=== PATIENT | female | born 2000 | race Caucasian/White ===

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

== ENCOUNTER 2020-03-26 01:25 | Emergency (ER) | payer MEDICAID ==
--- NOTE | 2020-03-26 01:28 | ED Physician Documentation ---
History of Present Illness - Stated complaint Stated Complaint: JACOB MELENDEZ - History obtained from History obtained from: Patient - Additonal information Additional information: Patient is a 19-year-old female who presents with a chief complaint of sore throat. She reports that she has been treated currently for some sort of thyroid condition she is unsure what she is taking. She has a follow-up appointment on Saturday. She denies fevers, headache or neck pain denies any swelling of the face neck or throat.Denies headache, neck pain or rashes. Reports she is up-to-date on all of her immunizations. Review of Systems Constitutional: reports: Reviewed and negative Eyes: reports: Reviewed and negative Ears: reports: Reviewed and negative Nose: reports: Reviewed and negative Throat: reports: Sore throat Cardiac: reports: Reviewed and negative Respiratory: reports: Reviewed and negative GI: reports: Reviewed and negative : reports: Reviewed and negative Skin: reports: Reviewed and negative Musculoskeletal: reports: Reviewed and negative Neurologic: reports: Reviewed and negative Psychiatric: reports: Reviewed and negative Endocrine: reports: Reviewed and negative Immunocompromised: reports: Reviewed and negative PD PAST MEDICAL HISTORY - Past Medical History Respiratory: Asthma GI: Ulcers - Past Surgical History Past Surgical History: Yes HEENT: Tonsil/Adenoidectomy - Present Medications Home Medications: Ambulatory Orders Medication Instructions Recorded Confirmed Fluoxetine HCl 20 mg PO DAILY 03/26/20 03/26/20 Thyroid Meds 03/26/20 - Allergies Allergies/Adverse Reactions: Allergies Allergy/AdvReac Type Severity Reaction Status Date / Time No Known Drug Allergies Allergy Verified 03/26/20 01:30 - Social History Does the pt smoke?: Yes Smoking Status: Current every day smoker Does the pt drink ETOH?: No Does the pt have substance abuse?: No - Immunizations Immunizations are current?: Yes - POLST Patient has POLST: No PD ED PE NORMAL - Vitals Vital signs reviewed: Yes - General General: Alert and oriented X 3, No acute distress, Well developed/nourished - HEENT HEENT: PERRL, Moist mucous membranes, Other (Oropharynx is erythematous but there is no exudates, uvula is midline there is no anterior posterior cervical lymphadenopathy there is no obvious thyromegaly there is no JVD and no bruits the Neck is supple.) - Neck Neck: Supple, no meningeal sign - Cardiac Cardiac: RRR, No murmur - Respiratory Respiratory: Clear bilaterally - Abdomen Abdomen: Normal bowel sounds, Soft, Non tender, Non distended, No organomegaly - Derm Derm: Normal color, Warm and dry, No rash - Extremities Extremities: No deformity, No tenderness to palpate, Normal ROM s pain, No edema, No calf tenderness / cord - Neuro Neuro: Alert and oriented X 3, trimmer buffing wheel 2-12 intact, No motor deficit, No sensory deficit, Normal speech - Psych Psych: Normal mood, Normal affect Results - Vitals Vitals: Vital Signs - 24 hr 03/26/20 01:28 Temperature 36.7 C Heart Rate 95 Respiratory 16 Rate Blood Pressure 128/66 O2 Saturation 100 Oxygen O2 Source Room air - Labs Labs: Laboratory Tests 03/26/20 01:02 Group A Strep Rapid Negative PD MEDICAL DECISION MAKING - ED course Complexity details: reviewed results, re-evaluated patient, considered differential, d/w patient ED course: Patient has no signs or symptoms or any exam findings concerning for respiratory distress or Suresh's angina or peritonsillar abscess or prevertebral abscess the neck is supple there is no obvious thyromegaly. Her rapid strep screen is negative she is able to tolerate a p.o. challenge here she has normal voice.Patient Indicates she has scheduled outpatient blood work for this Saturday.Patient has follow-up appointment on Saturday. She should return to the emergency department with any concerns. Departure - Departure Disposition: Home, Self Care Clinical Impression: Thyroiditis Pharyngitis Qualifiers: Pharyngitis/tonsillitis etiology: unspecified etiology Qualified Code(s): J02.9 - Acute pharyngitis, unspecified Condition: Stable Instructions: Thyroid Probs Evaluate Follow-Up: Alanna Salgado MD [Primary Care Provider] - Comments: follow up with your primary care provider on Saturday.
[2020-03-26 01:30] VITALS: BP 128/66
[2020-03-26 02:09] LABS: RAPID STREP SCREEN Negative (Negative)
== END 2020-03-26 02:19 | disposition home or self-care (01) ==
LOC: ED 01:25
DX: J02.9 Acute pharyngitis, unspecified (principal); E06.9 Thyroiditis, unspecified; F17.200 Nicotine dependence, unspecified, uncomplicated
CPT/HCPCS: 87070; 87430; 99282; 99283

== ENCOUNTER 2020-06-25 22:13 | Emergency (ER) | payer MEDICAID ==
[2020-06-25 22:30] VITALS: BP 111/87
== END 2020-06-25 23:01 | disposition left against medical advice (07) ==
LOC: ED 22:13
DX: Z53.21 Procedure and treatment not carried out due to patient leaving prior to being seen by health care provider (principal)
CPT/HCPCS: 93005

== ENCOUNTER 2020-10-02 16:22 | Outpatient (CLI) | payer MEDICAID ==
[2020-10-02 17:10] LABS: HCG,QUALITATIVE BLOOD NEGATIVE
== END 2020-10-02 16:23 | disposition home or self-care (01) ==
LOC: LAB 16:22
PROVIDERS: ATTEND Specialist
DX: Z01.812 Encounter for preprocedural laboratory examination (principal)
CPT/HCPCS: 36415; 84703

== ENCOUNTER 2020-11-12 00:21 | Emergency (ER) | payer MEDICAID ==
--- NOTE | 2020-11-12 00:45 | ED Physician Documentation ---
PD HPI DYSPNEA - Stated complaint Stated Complaint: SOA - Chief complaint Chief Complaint: Resp - History obtained from History obtained from: Family - History of Present Illness Timing - onset: How many minutes ago (30) Timing - onset during: Rest Timing - details: Abrupt onset, Still present (nearly resolved) Pain level now: 0 Associated symptoms: No: Fever, Cough, Hemoptysis, Wheezing, Chest pain / discomfort, Palpitations, Bilateral edema, Unilateral edema, Anxiety Recently seen: Not recently seen - Additional information Additional information: patient presents complaining of dyspnea which started 30 minutes prior to arrival while at home at rest. She said she has not had similar symptoms before. The dyspnea has nearly resolved by the time of this evaluation. She says she is approximately 6 to 7 weeks , has not had outpatient evaluation for this yet but she said she has had several positive home tests. Review of Systems Constitutional: reports: Reviewed and negative Cardiac: reports: Reviewed and negative Respiratory: reports: Dyspnea. denies: Cough, Hemoptysis, Wheezing GI: reports: Reviewed and negative : reports: Now EGA (6-7 weeks) PD PAST MEDICAL HISTORY - Past Medical History Past Medical History: Yes Cardiovascular: Atrial fibrillation Respiratory: Asthma Endocrine/Autoimmune: HyPERthyroidism GI: Ulcers - Past Surgical History Past Surgical History: Yes HEENT: Tonsil/Adenoidectomy - Present Medications Home Medications: Ambulatory Orders Medication Instructions Recorded Confirmed Fluoxetine HCl 20 mg PO DAILY 03/26/20 11/12/20 Thyroid Meds 03/26/20 atenoloL [Tenormin] 25 mg PO BID 11/12/20 11/12/20 - Allergies Allergies/Adverse Reactions: Allergies Allergy/AdvReac Type Severity Reaction Status Date / Time No Known Drug Allergies Allergy Verified 11/12/20 00:32 - Social History Does the pt smoke?: Yes Smoking Status: Current every day smoker Does the pt drink ETOH?: No Does the pt have substance abuse?: No - Immunizations Immunizations are current?: Yes - POLST Patient has POLST: No PD ED PE NORMAL - Vitals Vital signs reviewed: Yes - General General: Alert and oriented X 3, No acute distress, Well developed/nourished - Neck Neck: Supple, no meningeal sign - Respiratory Respiratory: No respiratory distress, Clear bilaterally - Abdomen Abdomen: Soft, Non tender PD ED PE EXPANDED - Cardiac Cardiac: Tachy, Regular Rhythm, Murmur Present (2/6 COLBY left 2nd ICS) Results - Vitals Vitals: Vital Signs - 24 hr 11/12/20 11/12/20 11/12/20 00:29 00:32 01:50 Temperature 36.7 C 36.7 C 36.7 C Heart Rate 122 H 113 H 116 H Respiratory 16 30 H 21 Rate Blood Pressure 151/68 H 149/68 H 132/62 H O2 Saturation 97 100 100 11/12/20 11/12/20 02:34 02:53 Temperature 36.7 C Heart Rate 125 H 125 H Respiratory 26 H 26 H Rate Blood Pressure 151/65 H 151/65 H O2 Saturation 99 99 Oxygen O2 Source Room air - EKG (time done) No standard instances Rate: Rate (enter#) (110), Tachy Rhythm: Sinus tachycardia [place]: Normal Intervals: Normal DE, Other (rSR) QRS: Normal Ischemia: Normal ST segments Compare to prior EKG: Unchanged from prior EKG - Labs Labs: Laboratory Tests 11/12/20 11/12/20 11/12/20 00:49 00:49 00:49 WBC 7.5 RBC 4.39 Hgb 11.3 L Hct 35.3 L MCV 80.4 L MCH 25.7 L MCHC 32.0 RDW 12.2 Plt Count 186 MPV 10.2 Neut # (Auto) 4.0 Lymph # (Auto) 2.6 Starke # (Auto) 0.5 Eos # (Auto) 0.3 Baso # (Auto) 0.0 Absolute Nucleated RBC 0.00 Nucleated RBC % 0.0 Sodium 136 Potassium 3.7 Chloride 103 Carbon Dioxide 25 Anion Gap 8.0 BUN 16 Creatinine 0.3 L Estimated GFR (MDRD) 284 Glucose 123 H Calcium 9.0 Total Bilirubin 0.6 AST 23 ALT 24 Alkaline Phosphatase 135 H Total Protein 6.3 L Albumin 3.4 Globulin 2.9 Albumin/Globulin Ratio 1.2 Lipase 46 TSH < 0.08 L Free T4 HCG, Quant 11/12/20 11/12/20 00:49 00:49 WBC RBC Hgb Hct MCV MCH MCHC RDW Plt Count MPV Neut # (Auto) Lymph # (Auto) Starke # (Auto) Eos # (Auto) Baso # (Auto) Absolute Nucleated RBC Nucleated RBC % Sodium Potassium Chloride Carbon Dioxide Anion Gap BUN Creatinine Estimated GFR (MDRD) Glucose Calcium Total Bilirubin AST ALT Alkaline Phosphatase Total Protein Albumin Globulin Albumin/Globulin Ratio Lipase TSH Free T4 5.06 H HCG, Quant 1.46 PD MEDICAL DECISION MAKING - ED course Complexity details: reviewed old records, reviewed results, re-evaluated patient, considered differential, d/w patient ED course: patient presents with dyspnea that started 30 minutes ago while at home at rest and is nearly resolved by the time of this evaluation. On reevaluation after tests are resulted, patient says she is no longer having any symptoms and is requesting discharge home. I reviewed the results of her test with her. Her hCG quant is negative at this time and I explained to her that this would be inconsistent with currently being . This is relevant because she is taking atenolol which would be a sub optimal medication in (category D). as her blood test is inconsistent with being at this time, I r ecommended that she take a dose of atenolol as soon as she gets home, and then resume taking the atenolol as prescribed. Her TSH is undetected low, and her free T4 is elevated, consistent with hypothyroidism, and she already does carry this diagnosis. Records from [facility] ED visit from September were faxed and I reviewed these records, they indicate a very similar visit at that time with similar findings. The ED record reflects that the ED physician spoke with patients senior quantity surveyor, and the recommendation was to emphasize strict adherence to her regimen of atenolol and methimazole. sukhwinder visit represents patients 12th emergency department visit over past 12 months to three different emergency departments. She is discharged although she is still tachycardic at the time of discharge, but she insist this is normal for her, she is an NAD, and strongly wishes to be discharged at this time. She says she will call her senior quantity surveyor on Saturday to discuss these results and obtain further recommendation regarding medication Departure - Departure Disposition: Home, Self Care Clinical Impression: Hyperthyroidism Condition: Good Instructions: ED Hyperthyroidism Follow-Up: Alanna Salgado MD [Primary Care Provider] - Comments: As we discussed, your test susan results as negative for . I recommend resuming the methimazole as prescribed, and taking a dose of your atenolol as soon as you get home, then resuming the prescribed dose. Contact your senior quantity surveyor Saturday to discuss follow up recommendations. Susan's thyroid tests were significantly abnormal and suggestive of uncontrolled hyperthyroidism. Discharge Date/Time: 11/12/20 02:53
[2020-11-12] MEDS ORDERED: SODIUM CHLORIDE 0.9% 1,000 ML IV STA (01:14)
[2020-11-12 01:19] LABS: BASOPHILS % (AUTO) 0.4 %; EOSINOPHILS # (AUTO) 0.3 10^3/uL (0.0-0.7); EOSINOPHILS % (AUTO) 3.5 %; HCT - HEMATOCRIT 35.3 % (37.0-47.0); HGB - HEMOGLOBIN 11.3 g/dL (12.0-16.0); LYMPHOCYTES # (AUTO) 2.6 10^3/uL (1.5-3.5); LYMPHOCYTES % (AUTO) 35.2 %; MEAN CORPUSCULAR HEMOGLOBIN 25.7 pg (27.0-31.0); MEAN CORPUSCULAR VOLUME 80.4 fL (81.0-99.0); MEAN PLATELET VOLUME 10.2 fL (7.9-10.8); MONOCYTES # (AUTO) 0.5 10^3/uL (0.0-1.0); MONOCYTES % (AUTO) 7.2 %; NEUTROPHILS % (AUTO) 53.4 %; PLT - PLATELET COUNT 186 10^3/uL (130-450); RED BLOOD COUNT 4.39 10^6/uL (4.20-5.40); RED CELL DISTRIBUTION WIDTH 12.2 % (12.0-15.0); WHITE BLOOD COUNT 7.5 x10^3/uL (4.8-10.8)
[2020-11-12 01:29] LABS: ALBUMIN 3.4 g/dL (3.2-5.5); ALBUMIN/GLOBULIN RATIO 1.2 (1.0-2.2); BILIRUBIN,TOTAL 0.6 mg/dL (0.2-1.0); CREATININE 0.3 mg/dL (0.4-1.0); POTASSIUM 3.7 mmol/L (3.5-5.0); TOTAL PROTEIN 6.3 g/dL (6.7-8.2)
[2020-11-12 02:34] VITALS: BP 151/65
--- OUTSIDE RECORDS SUMMARY | 2020-11-16 02:23 | EXTERNAL MEDICAL SUMMARY RPT | Continuity of Care Document ---
:2000 Demographics Phone Unavailable Preferred Language Russian Marital Status Unknown Rastafarian Affiliation Unknown Race Unknown Ethnic Group Unknown Author Organization [place] Address [address] [id number] Phone Care Team Providers Name Role Phone Damian Unavailable Unavailable Problems date description facility 20201007 Encounter for other preprocedural exami [facility] 20201115 Encounter for supervision of other norm al , [facility] first t Medications date description facility 20200915 Atenolol 25 MG Oral Tablet [facility] ital Procedures date description facility 20200915 General Physician [facility] Vital Signs date measurement value source 20200915 BMI 18.7 kg/m2 20200915 BP_diastolic 80 mm[Hg] 20200915 BP_systolic 127 mm[Hg] 20200915 heart_rate 108 /min 20200915 height_metric 167.64 cm 20200915 height_standard 66 in 20200915 respiration_rate 16 /min 20200915 temperature_metric 37.11 C 20200915 temperature_standard 98.8 F 20200915 weight_metric 52.61 kg 20200915 weight_standard 115.99 lb Social History date description facility [id number]
== END 2020-11-12 02:53 | disposition home or self-care (01) ==
LOC: ED 00:21
DX: E05.90 Thyrotoxicosis, unspecified without thyrotoxic crisis or storm (principal); R06.02 Shortness of breath; R00.0 Tachycardia, unspecified; Z32.02 Encounter for pregnancy test, result negative; F17.200 Nicotine dependence, unspecified, uncomplicated
CPT/HCPCS: 36415; 80053; 83690; 84439; 84443; 84702; 85025; 93005; 96360; 99283

== ENCOUNTER 2020-11-23 22:21 | Emergency (ER) | payer MEDICAID ==
--- OUTSIDE RECORDS SUMMARY | 2020-11-23 22:25 | EXTERNAL MEDICAL SUMMARY RPT | Continuity of Care Document ---
:2000 Demographics Phone Unavailable Preferred Language Yi Marital Status Unknown Jew Affiliation Unknown Race Unknown Ethnic Group Unknown Author Organization [place] Address [address] [phone] Phone Care Team Providers Name Role Phone Damian Unavailable Unavailable Problems date description facility 20201007 Encounter for other preprocedural exami [facility] 20201115 Encounter for supervision of other norm al , [facility] first t 20201116 Less than 8 weeks gestation of [facility] Medications date description facility 20200915 Atenolol 25 MG Oral Tablet [facility] ital Procedures date description facility 20200915 [facility] date description facility 20201007 [facility] date description facility 20201115 [facility] date description facility 20201116 [facility] date description facility 20201117 [facility] Vital Signs date measurement value source 20200915 BMI 18.7 kg/m2 20200915 BP_diastolic 80 mm[Hg] 20200915 BP_systolic 127 mm[Hg] 20200915 heart_rate 108 /min [id number] height_metric 167.64 cm [id number] height_standard 66 in [id number] respiration_rate 16 /min 20200915 temperature_metric 37.11 C 20200915 temperature_standard 98.8 F 20200915 weight_metric 23.87 kg [id number] weight_metric 52.61 kg 16658202 weight_standard 115.99 lb [id number] weight_standard 52.62 lb Social History date description facility [id number]
--- OUTSIDE RECORDS SUMMARY | 2020-11-23 22:27 | EXTERNAL MEDICAL SUMMARY RPT | Continuity of Care Document ---
:2000 Demographics Phone Unavailable Preferred Language Romansh Marital Status Unknown Yazdanism Affiliation Unknown Race Unknown Ethnic Group Unknown Author Organization [place] Address [address] [phone] Phone Care Team Providers Name Role Phone Damian Unavailable Unavailable Problems date description facility 20201007 Encounter for other preprocedural exami [facility] 20201115 Encounter for supervision of other norm al , [facility] first t 20201116 Less than 8 weeks gestation of [facility] Medications date description facility 20200915 Atenolol 25 MG Oral Tablet [facility] ital Procedures date description facility 20200915 [facility] date description facility 20201007 [facility] date description facility 20201115 [facility] date description facility 20201116 [facility] date description facility 20201117 [facility] Vital Signs date measurement value source 20200915 BMI 18.7 kg/m2 20200915 BP_diastolic 80 mm[Hg] 20200915 BP_systolic 127 mm[Hg] 20200915 heart_rate 108 /min [id number] height_metric 167.64 cm [id number] height_standard 66 in [id number] respiration_rate 16 /min 20200915 temperature_metric 37.11 C 20200915 temperature_standard 98.8 F 20200915 weight_metric 23.87 kg 43395953 weight_metric 52.61 kg 98993430 weight_standard 115.99 lb [id number] weight_standard 52.62 lb Social History date description facility [id number]
[2020-11-23 22:39] VITALS: BP 143/65
== END 2020-11-24 00:04 | disposition left against medical advice (07) ==
LOC: ED 22:21
DX: Z53.21 Procedure and treatment not carried out due to patient leaving prior to being seen by health care provider (principal)

== ENCOUNTER 2021-01-17 23:53 | Emergency (ER) | payer MEDICAID ==
--- OUTSIDE RECORDS SUMMARY | 2021-01-17 23:56 | EXTERNAL MEDICAL SUMMARY RPT | Continuity of Care Document ---
:2000 Demographics Phone Unavailable Preferred Language Faroese Marital Status Unknown Congregational Affiliation Unknown Race Unknown Ethnic Group Unknown Author Organization [place] Address [address] [place] [address] Phone Care Team Providers Name Role Phone Alanna Salgado Unavailable Unavailable Allergies Encounters Medications Problems date description facility 20201116 Less than 8 weeks gestation of [facility] 20201115 Encounter for supervision of other norm al , [facility] first t Procedures date description facility 20201117 [facility] 20201116 [facility] 20201115 [facility] Results
--- OUTSIDE RECORDS SUMMARY | 2021-01-18 00:19 | EXTERNAL MEDICAL SUMMARY RPT | Continuity of Care Document ---
:2000 Demographics Phone Unavailable Preferred Language Malawian Marital Status Unknown Alevism Affiliation Unknown Race Unknown Ethnic Group Unknown Author Organization [place] Address [address] [place] [address] Phone Care Team Providers Name Role Phone Alanna Salgado Unavailable Unavailable Allergies Encounters Medications Problems date description facility 20201116 Less than 8 weeks gestation of [facility] 20201115 Encounter for supervision of other norm al , [facility] first t Procedures date description facility 20201117 [facility] 20201116 [facility] 20201115 [facility] Results
--- NOTE | 2021-01-18 00:49 | ED Physician Documentation ---
PD HPI CHEST PAIN - Stated complaint Stated Complaint: LT SIDED RIB PX - Chief complaint Chief Complaint: General - History obtained from History obtained from: Patient - History of Present Illness Timing - onset: How many weeks ago (1.5 weeks ago) Timing - details: Gradual onset, Waxing and waning Pain level now: 8 Quality: Pain Location: Left chest, Right chest, Other (bilaterally but predominantly left lower anterolateral chest) Improved by: Rest Worsened by: Inspiration (mild pleuritic component), Palpation, Other (coughing) Associated symptoms: Shortness of air Similar symptoms before: Has not had sx before Recently seen: Not recently seen Review of Systems Constitutional: denies: Fever, Chills, Sweats Cardiac: reports: Chest pain / pressure. denies: Palpitations, Pedal edema, Calf pain Respiratory: reports: Dyspnea, Cough (nonproductive). denies: Hemoptysis, Wheezing Skin: denies: Rash PD PAST MEDICAL HISTORY - Past Medical History Past Medical History: Yes Cardiovascular: Atrial fibrillation Respiratory: Asthma Endocrine/Autoimmune: HyPERthyroidism GI: Ulcers - Past Surgical History Past Surgical History: Yes HEENT: Tonsil/Adenoidectomy - Present Medications Home Medications: Ambulatory Orders Medication Instructions Recorded Confirmed Fluoxetine HCl 20 mg PO DAILY 03/26/20 11/12/20 Thyroid Meds 03/26/20 atenoloL [Tenormin] 25 mg PO BID 11/12/20 11/12/20 Azithromycin [Zithromax] 250 mg PO DAILY #4 tablet 01/18/21 - Allergies Allergies/Adverse Reactions: Allergies Allergy/AdvReac Type Severity Reaction Status Date / Time Penicillins Allergy Anaphylaxis Verified 01/17/21 23:57 - Social History Does the pt smoke?: Yes Smoking Status: Current every day smoker Does the pt drink ETOH?: No Does the pt have substance abuse?: No - Immunizations Immunizations are current?: Yes - POLST Patient has POLST: No PD ED PE NORMAL - Vitals Vital signs reviewed: Yes - General General: Alert and oriented X 3, No acute distress, Well developed/nourished - Cardiac Cardiac: RRR, No murmur, No gallop, No rub - Respiratory Respiratory: No respiratory distress, Clear bilaterally - Abdomen Abdomen: Soft, Non tender - Derm Derm: Normal color, Warm and dry, No rash - Extremities Extremities: No edema Results - Vitals Vitals: Vital Signs - 24 hr 01/17/21 01/18/21 01/18/21 23:58 00:02 02:02 Temperature 36.5 C 36.5 C Heart Rate 112 H 112 H 92 Respiratory 16 16 17 Rate Blood Pressure 139/71 H 139/71 H 119/58 L O2 Saturation 98 98 99 01/18/21 04:00 Temperature Heart Rate 98 Respiratory 22 Rate Blood Pressure 111/50 L O2 Saturation 99 Oxygen O2 Source Room air - EKG (time done) No standard instances Rate: Rate (enter#) (95) Rhythm: NSR [place]: Normal Intervals: Normal [place] QRS: Normal Ischemia: Normal ST segments Other comments: Other comments (isolated inverted T in lead III) Compare to prior EKG: Unchanged from prior EKG (11/12/20) - Labs Labs: Laboratory Tests 01/18/21 01/18/21 01/18/21 01:15 02:09 02:09 WBC 6.7 RBC 4.79 Hgb 12.4 Hct 38.5 MCV 80.4 L MCH 25.9 L MCHC 32.2 RDW 12.0 Plt Count 231 MPV 9.4 Neut # (Auto) 3.0 Lymph # (Auto) 2.8 [place] # (Auto) 0.7 Eos # (Auto) 0.2 Baso # (Auto) 0.0 Absolute Nucleated RBC 0.00 Nucleated RBC % 0.0 Sodium 138 Potassium 3.6 Chloride 104 Carbon Dioxide 25 Anion Gap 9.0 BUN 13 Creatinine 0.3 L Estimated GFR (MDRD) 284 Glucose 106 H Calcium 9.3 Urine HCG, Qual NEGATIVE - Rads (name of study) CT chest angio Radiology: Prelim report reviewed, See rad report PD MEDICAL DECISION MAKING - ED course Complexity details: reviewed results, re-evaluated patient, considered differential, d/w patient ED course: tachycardia precludes r/o PE using PERC and thus CT chest angio performed. No PE but a left lingular infiltrate is demonstrated. She is given dose of zithromax and rx for same to complete 5 days course. She also has tachycardia for most of her ED stay, which she has had on previous visits, attributed to her hyperthroidism. She says she is compliant with her medications for this. She says she was told to stop her atenolol; due to her recurrent tachycardia in ED including brief increase to 150s ST when I woke her to review her lab results with her, she is given a dose of atenolol in ED prior to d/c Departure - Departure Disposition: 01 Home, Self Care Clinical Impression: Hyperthyroidism, Pneumonia Condition: Good Instructions: ED Hyperthyroidism, ED Pneumonia Adult Follow-Up: Alanna Salgado MD [Primary Care Provider] - Prescriptions: Azithromycin [Zithromax] 250 mg PO DAILY #4 tablet Discharge Date/Time: 01/18/21 04:26
[2021-01-18] MEDS ORDERED: IOVERSOL 320 100 ML VIAL IVP ONE ×2 (01:23→02:58)
[2021-01-18 01:41] LABS: HCG UR QUAL NEGATIVE
[2021-01-18 02:20] LABS: BASOPHILS % (AUTO) 0.6 %; EOSINOPHILS # (AUTO) 0.2 10^3/uL (0.0-0.7); EOSINOPHILS % (AUTO) 3.1 %; HCT - HEMATOCRIT 38.5 % (37.0-47.0); HGB - HEMOGLOBIN 12.4 g/dL (12.0-16.0); LYMPHOCYTES # (AUTO) 2.8 10^3/uL (1.5-3.5); MEAN CORPUSCULAR HEMOGLOBIN 25.9 pg (27.0-31.0); MEAN CORPUSCULAR HGB CONC 32.2 g/dL (32.0-36.0); MEAN CORPUSCULAR VOLUME 80.4 fL (81.0-99.0); MEAN PLATELET VOLUME 9.4 fL (7.9-10.8); MONOCYTES # (AUTO) 0.7 10^3/uL (0.0-1.0); MONOCYTES % (AUTO) 10.7 %; NEUTROPHILS % (AUTO) 44.5 %; PLT - PLATELET COUNT 231 10^3/uL (130-450); RED BLOOD COUNT 4.79 10^6/uL (4.20-5.40); WHITE BLOOD COUNT 6.7 x10^3/uL (4.8-10.8)
[2021-01-18 02:25] LABS: CALCIUM 9.3 mg/dL (8.5-10.3); CREATININE 0.3 mg/dL (0.4-1.0); POTASSIUM 3.6 mmol/L (3.5-5.0)
[2021-01-18] MEDS ORDERED: atenoloL 25 MG TABLET PO STA (04:05)
[2021-01-18] MEDS ORDERED: AZITHROMYCIN 250 MG TABLET PO STA (04:06)
[2021-01-18 04:08] VITALS: BP 111/50
--- NOTE | 2021-01-18 12:28 | CT Report ---
PROCEDURE: ANGIO CHEST W/WO INDICATIONS: pleuritic left chest pain CONTRAST: IV CONTRAST: Optiray 320 ml: 80 PO CONTRAST: *NO PO CONTRAST TECHNIQUE: After the administration of intravenous contrast, 2 mm thick sections acquired from the pulmonary api raina to the posterior costophrenic angles. 3-dimensional maximum intensity projection (MIP) coronal a nd sagittal reformats were then acquired through the thorax. For radiation dose reduction, the follow ing was used: automated exposure control, adjustment of mA and/or kV according to patient size. COMPARISON: CT chest with contrast, 11/05/2016 FINDINGS: Image quality: Excellent. Pulmonary arteries: Pulmonary arteries are normal in size, and demonstrate no intraluminal filling d efects to suggest central pulmonary embolism. Lungs and pleura: Airspace opacity in the lingula consistent with pneumonia. Subtle groundglass subt le groundglass opacity in the left upper lobe are present. There is a 3 mm nodule in the right middle lobe, which was visualized on 11/05/2016 and appears unchanged in size. No pleural effusions or pneum othorax. Central and peripheral airways are patent. Mediastinum: Heart size is normal, without pericardial effusion. No mediastinal or hilar adenopathy . Thoracic aorta is normal in caliber and enhancement. Esophagus is normal in caliber, without hiat al hernia. Bones and chest wall: No suspicious bony lesions. Mild chronic compression fracture of T6. Ribs and thoracic spine appear intact throughout. No axillary or supraclavicular adenopathy. The thyroid is diffusely enlarged. Abdomen: Visualized upper abdominal solid organs appear normal in the early arterial phase of enhanc ement. IMPRESSION: 1. No findings to suggest pulmonary aneurysm. 2. Lingular and left upper lobe pneumonia. 3. Stable 3 mm nodule in the right middle lobe. 4. Thyromegaly. Please correlate with thyroid function tests. No significant discrepancy with the preliminary interpretation. Fleischner Society criteria for SOLID lung nodule followup. Nodule size (mm) Low-risk patient High-risk patient ?4 No follow-up needed Follow-up at 12 mo; if no change, no further follow-up >4-[address] at 12 mo; if no change, no further follow-up needed. Initial follow-up CT at 6-12 mo, then 18-24 mo if no change. >6-8 Initial follow-up CT at 6-12 mo, then 18-24 mo if no change. Initial follow-up CT at 3-6 mo, then 9-12 mo and 24 mo if no change. >8 Follow-[address] at 3, 9, 24 mo. Or PET and/or biopsy. Same as for low-risk pts. Reviewed by: Ann Conroy MD on 01/18/2021 12:27 PM PDT Approved by: Ann Conroy MD on 01/18/2021 12:27 PM PDT Station ID: [id number]
== END 2021-01-18 04:26 | disposition home or self-care (01) ==
LOC: ED 23:53
DX: E05.90 Thyrotoxicosis, unspecified without thyrotoxic crisis or storm (principal); J18.9 Pneumonia, unspecified organism; I48.91 Unspecified atrial fibrillation; F17.200 Nicotine dependence, unspecified, uncomplicated; R00.0 Tachycardia, unspecified
CPT/HCPCS: 36415; 71275; 80048; 81025; 85025; 93005; 99284; A9270; Q9967

== ENCOUNTER 2021-04-24 19:13 | Emergency (ER) | payer MEDICAID ==
[2021-04-24 19:21] VITALS: BP 138/77
== END 2021-04-24 19:50 | disposition left against medical advice (07) ==
LOC: ED 19:13
DX: Z53.21 Procedure and treatment not carried out due to patient leaving prior to being seen by health care provider (principal)

== ENCOUNTER 2021-07-13 13:20 | Emergency (ER) | payer MEDICAID ==
[2021-07-13 13:48] VITALS: BP 136/72
--- NOTE | 2021-07-13 13:55 | ED Physician Documentation ---
History of Present Illness - Stated complaint Stated Complaint: R CALF PX/ TATTOO INFECTION - Chief complaint Chief Complaint: General - Additonal information Additional information: 20-year-old female presents emergency department with acute right posterior calf pain at the site where she got a tattoo on 07 July. Though it should have been kept covered in Tegaderm for 48 to 72 hours she uncovered if she had a shower. Over the last 2 to 3 days she has had progressive erythema swelling and increased pain at the site. Concerned she could have a infection. Reports tetanus is being up-to-date. Review of Systems Constitutional: denies: Fever, Chills Eyes: reports: Reviewed and negative Nose: reports: Reviewed and negative Throat: reports: Reviewed and negative Cardiac: reports: Reviewed and negative Respiratory: reports: Reviewed and negative GI: reports: Reviewed and negative : reports: Reviewed and negative Skin: reports: Lesions Musculoskeletal: reports: Reviewed and negative PD PAST MEDICAL HISTORY - Past Medical History Cardiovascular: Atrial fibrillation Respiratory: Asthma Endocrine/Autoimmune: HyPERthyroidism GI: Ulcers - Past Surgical History Past Surgical History: Yes HEENT: Tonsil/Adenoidectomy - Present Medications Home Medications: Ambulatory Orders Medication Instructions Recorded Confirmed Fluoxetine HCl 20 mg PO DAILY 03/26/20 11/12/20 Thyroid Meds 03/26/20 atenoloL [Tenormin] 25 mg PO BID 11/12/20 11/12/20 Azithromycin [Zithromax] 250 mg PO DAILY #4 tablet 01/18/21 Doxycycline Hyclate 100 mg PO BID #14 cap 07/13/21 - Allergies Allergies/Adverse Reactions: Allergies Allergy/AdvReac Type Severity Reaction Status Date / Time Penicillins Allergy Anaphylaxis Verified 07/13/21 13:43 - Social History Does the pt smoke?: Yes Smoking Status: Current every day smoker Does the pt drink ETOH?: No Does the pt have substance abuse?: No - Immunizations Immunizations are current?: Yes - POLST Patient has POLST: No PD ED PE EXPANDED - General General: Alert, No acute distress - Extremities Extremities: Right leg (Butterfly tattoo seen on right posterior calf. Central portion is somewhat erythematous though no draining or fluctuance. Erythema and induration extends about 3 x 3 cm.) Results - Vitals Vitals: Vital Signs - 24 hr 07/13/21 13:36 Temperature 36.6 C Heart Rate 102 H Respiratory 15 Rate Blood Pressure 136/72 H O2 Saturation 98 Oxygen O2 Source Room air PD MEDICAL DECISION MAKING - ED course Complexity details: considered differential, d/w patient ED course: Well-appearing 20-year-old female presents emergency department for evaluation of acute right posterior calf pain at the site where she had a tattoo. Unfortunately did not complete proper post tattoo care and now subsequently presents with an infection. Her tetanus is up-to-date. She will be started on doxycycline. No findings to suggest acute abscess formation. Emergent worrisome return precautions were discussed. Departure - Departure Disposition: Home, Self Care Clinical Impression: Tattoo Cellulitis Qualifiers: Site of cellulitis: extremity Site of cellulitis of extremity: lower extremity Laterality: right Qualified Code(s): L03.115 - Cellulitis of right lower limb Condition: Stable Record reviewed to determine appropriate education?: Yes Instructions: Cellulitis Dc Prescriptions: Doxycycline Hyclate 100 mg PO BID #14 cap Comments: The tattoo appears to have become infected. Please fill the prescription for the doxycycline and begin taking 2 times a daily for the next week. This has been sent electronically to [facility] in [place]. Any antibiotic ointment can be applied over the tattoo. If you have concerns that the infection fails to resolve with antibiotics, you develop fevers, have red streaking increased pain or milky drainage from the tattoo site then please return immediately to the ER for second evaluation.
== END 2021-07-13 14:19 | disposition home or self-care (01) ==
LOC: ED 13:20
DX: L03.115 Cellulitis of right lower limb (principal); L81.8 Other specified disorders of pigmentation; I48.91 Unspecified atrial fibrillation; F17.200 Nicotine dependence, unspecified, uncomplicated
CPT/HCPCS: 99282; 99283

== ENCOUNTER 2021-07-26 16:27 | Outpatient (CLI) | payer MEDICAID | END 2021-07-26 16:28 | disposition home or self-care (01) | LOC: LAB.N 16:27 | PROVIDERS: ATTEND Nurse Practitioner Obstetrics & Gynecology | DX: N91.2 Amenorrhea, unspecified (principal) | CPT/HCPCS: 36415; 84702 ==

== ENCOUNTER 2021-09-01 00:06 | Emergency (ER) | payer MEDICAID ==
[2021-09-01 00:20] VITALS: BP 129/60
--- NOTE | 2021-09-01 01:24 | ED Physician Documentation ---
History of Present Illness - Stated complaint Stated Complaint: CYSTS BEHIND L KNEE - Chief complaint Chief Complaint: Wound - History obtained from History obtained from: Patient - History of Present Illness Timing: Yesterday Pain level now: 2 - Additonal information Additional information: h/o abscess behind left knee (region of popliteal fossa) which was drained at another ED (she cannot recall if it was needle drained or I+D). this was months, possibly a year ago. The lesion completely resolved , but for the past 1-2 days, it has reoccurred and slowly worsening in size and tenderness. denies trauma, denies fever. Review of Systems Constitutional: denies: Fever Skin: reports: Lesions, Other Musculoskeletal: denies: Extremity swelling PD PAST MEDICAL HISTORY - Past Medical History Past Medical History: Yes Cardiovascular: Atrial fibrillation Respiratory: Asthma Endocrine/Autoimmune: HyPERthyroidism GI: Ulcers - Past Surgical History Past Surgical History: Yes HEENT: Tonsil/Adenoidectomy - Present Medications Home Medications: Ambulatory Orders Medication Instructions Recorded Confirmed Doxycycline Hyclate 100 mg PO BID #19 cap 09/01/21 methIMAzole [Methimazole] 10 mg PO DAILY 09/01/21 09/01/21 - Allergies Allergies/Adverse Reactions: Allergies Allergy/AdvReac Type Severity Reaction Status Date / Time Penicillins Allergy Anaphylaxis Verified 09/01/21 00:20 - Social History Does the pt smoke?: Yes Smoking Status: Current every day smoker Does the pt drink ETOH?: No Does the pt have substance abuse?: No - Immunizations Immunizations are current?: Yes - POLST Patient has POLST: No PD ED PE NORMAL - Vitals Vital signs reviewed: Yes - General General: Alert and oriented X 3, No acute distress, Well developed/nourished - Derm Derm: Warm and dry PD ED PE EXPANDED - Extremities BLAISE LE visual: 1 - abscess, swelling, tenderness Results - Vitals Vitals: Oxygen O2 Source Patient supplied BIPAP PD MEDICAL DECISION MAKING - ED course Complexity details: considered differential, d/w patient ED course: small (2x2 cm) mildly tender raised erythema left posterior aspect of knee, erythematous without abnormal warmth/heat to touch. Suspect abscess, which appears small enough for a trial of abx alone (and not I+D) Departure - Departure Disposition: 01 Home, Self Care Clinical Impression: Abscess Condition: Good Instructions: ED Staph Infec Abx Tx Only Prescriptions: Doxycycline Hyclate 100 mg PO BID #19 cap Comments: The infection looks small enough at this time that it does not need to be drained; I suspect the antibiotic will be all that is needed to resolve the infection. A prescription for the antibiotic (doxycycline) has been electronically submitted to [facility] in [place]. It will likely take 2-3 days for the symptoms to improve. If your symptoms significantly worsen, or if you develop new signs or symptoms that are concerning (such as fever or red streaking), return to the emergency department for reevaluation Discharge Date/Time: 09/01/21 01:52
[2021-09-01] MEDS ORDERED: DOXYCYCLINE 100 MG TABLET PO STA (01:43)
== END 2021-09-01 01:52 | disposition home or self-care (01) ==
LOC: ED 00:06
DX: L02.91 Cutaneous abscess, unspecified (principal); I48.91 Unspecified atrial fibrillation; F17.200 Nicotine dependence, unspecified, uncomplicated
CPT/HCPCS: 99282; 99283; A9270

== ENCOUNTER 2023-10-19 02:26 | Emergency (ER) | payer MEDICAID ==
[2023-10-19] MEDS: SODIUM CHLORIDE 0.9% 1,000 ML IV STA (02:55)
[2023-10-19 03:01] LABS: BASOPHILS # (AUTO) 0.1 10^3/uL (0.0-0.1); BASOPHILS % (AUTO) 1.4 %; EOSINOPHILS # (AUTO) 0.2 10^3/uL (0.0-0.7); EOSINOPHILS % (AUTO) 1.8 %; HCT - HEMATOCRIT 41.5 % (37.0-47.0); HGB - HEMOGLOBIN 13.6 g/dL (12.0-16.0); LYMPHOCYTES # (AUTO) 4.1 10^3/uL (1.5-3.5); LYMPHOCYTES % (AUTO) 45.6 %; MEAN CORPUSCULAR HEMOGLOBIN 27.9 pg (27.0-31.0); MEAN CORPUSCULAR HGB CONC 32.8 g/dL (32.0-36.0); MEAN CORPUSCULAR VOLUME 85.2 fL (81.0-99.0); MEAN PLATELET VOLUME 8.8 fL (7.9-10.8); MONOCYTES # (AUTO) 0.5 10^3/uL (0.0-1.0); MONOCYTES % (AUTO) 5.3 %; NEUTROPHILS # (AUTO) 4.1 10^3/uL (1.5-6.6); NEUTROPHILS % (AUTO) 45.6 %; PLT - PLATELET COUNT 281 10^3/uL (130-450); RED BLOOD COUNT 4.87 10^6/uL (4.20-5.40); RED CELL DISTRIBUTION WIDTH 12.7 % (12.0-15.0); WHITE BLOOD COUNT 9.1 x10^3/uL (4.8-10.8)
[2023-10-19] MEDS: ONDANSETRON 4 MG/2 ML VIAL IVP STA (03:08)
[2023-10-19 03:24] LABS: ALBUMIN 4.6 g/dL (3.2-5.5); ALBUMIN/GLOBULIN RATIO 1.9 (1.0-2.2); BILIRUBIN,TOTAL 0.3 mg/dL (0.2-1.0); CALCIUM 8.9 mg/dL (8.5-10.3); CREATININE 0.7 mg/dL (0.6-1.3); ETOH - ETHANOL 254.9 mg/dL; POTASSIUM 3.5 mmol/L (3.5-4.5)
--- NOTE | 2023-10-19 03:41 | ED Physician Documentation ---
History of Present Illness - Stated complaint Stated Complaint: ETOH - Chief complaint Chief Complaint: Abd Pain - History obtained from History obtained from: Patient, Family, Friend - Additonal information Additional information: Driven to ED by family. Uncle and patient's friend brought patient to ED. At the time of my HPI, patient's friend is at bedside. Patient is drowsy but able to provide some HPI/ROS, mostly nods/shakes head (yes/no answers to my questions and to confirm friend's statements when I ask her to). Friend says patient was drinking this evening including shots of liquor, became increasingly unsteady, decreasing level of consciousness and a few episodes of vomiting. No witnessed fall or injury. Chief concern is the depressed level of consciousness in light of heavy alcohol intake. Review of Systems GI: reports: Nausea, Vomiting. denies: Abdominal Pain PD PAST MEDICAL HISTORY - Past Medical History Past Medical History: Yes Cardiovascular: Atrial fibrillation Respiratory: Asthma Neuro: None Endocrine/Autoimmune: HyPOthyroidism GI: Ulcers RN RADIATION: None : None HEENT: None Psych: Anxiety Musculoskeletal: None Derm: None - Past Surgical History Past Surgical History: Yes Ortho: Arthroscopic surgery HEENT: Tonsil/Adenoidectomy - Present Medications Home Medications: Ambulatory Orders Medication Instructions Recorded Confirmed methIMAzole [Methimazole] 20 mg PO DAILY 09/01/21 10/19/23 Levothyroxine Sodium [Levo-T] 125 mcg PO BID 10/19/23 10/19/23 Ondansetron Odt [Zofran Odt] 4 mg TL Q6H PRN #14 tablet 10/19/23 hydrOXYzine HCL [Hydroxyzine HCl] 25 mcg PO BID 10/19/23 10/19/23 - Allergies Allergies/Adverse Reactions: Allergies Allergy/AdvReac Type Severity Reaction Status Date / Time Penicillins Allergy Anaphylaxis Verified 10/19/23 02:40 - Social History Does the pt smoke?: Yes Smoking Status: Current every day smoker Does the pt drink ETOH?: Yes ETOH Use: Liquor Does the pt have substance abuse?: Yes Substance Use and Type: Marijuana - Immunizations Immunizations are current?: Yes - POLST Patient has POLST: No PD ED PE NORMAL - Vitals Vital signs reviewed: Yes - General General: No acute distress, Well developed/nourished, Other (drowsy but awakens to voice with gentle tactile (shoulder tapping); although mostly keeps her eyes closed, she continues to respond to questions though with nodding/shaking of head (yes/no). she does follow commands and is in NAD) - HEENT HEENT: Atraumatic, PERRL, EOMI, Moist mucous membranes - Cardiac Cardiac: RRR, No murmur - Respiratory Respiratory: No respiratory distress, Clear bilaterally - Abdomen Abdomen: Soft, Non tender - Derm Derm: Normal color, Warm and dry - Neuro Neuro: Other (drowsy but arousable and oriented x 3) Eye Opening: To Voice Motor: Obeys Commands Verbal: Oriented GCS Score: 14 Results - Vitals Vitals: Oxygen O2 Source Room air - Labs Labs: Laboratory Tests 10/19/23 10/19/23 02:25 02:25 WBC 9.1 RBC 4.87 Hgb 13.6 Hct 41.5 MCV 85.2 MCH 27.9 MCHC 32.8 RDW 12.7 Plt Count 281 MPV 8.8 Neut # (Auto) 4.1 Lymph # (Auto) 4.1 H Taney # (Auto) 0.5 Eos # (Auto) 0.2 Baso # (Auto) 0.1 Absolute Nucleated RBC 0.00 Nucleated RBC % 0.0 Sodium 145 Potassium 3.5 Chloride 111 Carbon Dioxide 24 Anion Gap 10.0 BUN 8 Creatinine 0.7 Estimated GFR (MDRD) 104 Glucose 119 H Calcium 8.9 Total Bilirubin 0.3 AST 24 ALT 23 Alkaline Phosphatase 41 L Total Protein 7.0 Albumin 4.6 Globulin 2.4 Albumin/Globulin Ratio 1.9 Lipase 31 Ethyl Alcohol 254.9 PD Medical Decision Making - ED course Complexity details: reviewed results, re-evaluated patient, considered differential, d/w patient, d/w family ED course: no concerning nor diagnostic findings on CBC, ER abdominal panel. Serum ethanol level is 255. Results d/w patient. Uncle and patient's friend are comfortable taking patient home. On reevaluation prior to d/c, she is adequately arousable; emesis with aspiration, or other complication of depressed mentation due to acute alcohol intoxication, is highly unlikely provided she does not return home and drink more alcohol Departure - Departure Disposition: 01 Home, Self Care Clinical Impression: Alcohol intoxication Condition: Good Instructions: ED Alcohol Intoxication Prescriptions: Ondansetron Odt [Zofran Odt] 4 mg TL Q6H PRN #14 tablet PRN Reason: Nausea / Vomiting Comments: There were no concerning findings on the blood tests performed tonight except for a very high blood alcohol level.This should gradually decrease as your body processes the alcohol provided you do not go home and drink more alcohol. If you are having problems with alcoholism contact your primary care provider to discuss options for treatment. I have electronically submitted a prescription for ondansetron (anti-nausea medication) to the [facility] pharmacy in [place]. Forms: PCP List Discharge Date/Time: 10/19/23 03:59
[2023-10-19 04:00] VITALS: BP 100/63; O2SAT 96
== END 2023-10-19 03:59 | disposition home or self-care (01) ==
LOC: ED 02:26
DX: F10.129 Alcohol abuse with intoxication, unspecified (principal); Y90.8 Blood alcohol level of 240 mg/100 ml or more; F17.200 Nicotine dependence, unspecified, uncomplicated
CPT/HCPCS: 36415; 80053; 82077; 83690; 85025; 96374; 99284

== ENCOUNTER 2023-12-06 21:32 | Emergency (ER) | payer MEDICAID ==
--- NOTE | 2023-12-06 22:35 | ED Physician Documentation ---
PD HPI HEADACHE - Stated complaint Stated Complaint: HIT HEAD - Chief complaint Chief Complaint: Heent - History obtained from History obtained from: Patient - Additional information Additional information: 23-year-old woman previously healthy presents with head injury after hitting her head on a car door frame yesterday with resulting hematoma. Today she has been experiencing mild frontal headache, nausea but no vomiting, fatigue, and constant mood swings with crying spells. Patient denies SI/HI/AVH. 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 : None HEENT: None Psych: Depression, Anxiety Musculoskeletal: None Derm: None - Past Surgical History Past Surgical History: Yes General: Cholecystectomy Ortho: Arthroscopic surgery HEENT: Tonsil/Adenoidectomy - Present Medications Home Medications: Ambulatory Orders Medication Instructions Recorded Confirmed methIMAzole [Methimazole] 20 mg PO DAILY 09/01/21 10/19/23 Levothyroxine Sodium [Levo-T] 125 mcg PO BID 10/19/23 10/19/23 Ondansetron Odt [Zofran Odt] 4 mg TL Q6H PRN #14 tablet 10/19/23 hydrOXYzine HCL [Hydroxyzine HCl] 25 mcg PO BID 10/19/23 10/19/23 - Allergies Allergies/Adverse Reactions: Allergies Allergy/AdvReac Type Severity Reaction Status Date / Time Penicillins Allergy Anaphylaxis Verified 12/06/23 21:52 - Social History Does the pt smoke?: Yes Smoking Status: Current every day smoker Does the pt drink ETOH?: No Does the pt have substance abuse?: No Substance Use and Type: Marijuana - Immunizations Immunizations are current?: Yes - POLST Patient has POLST: No PD ED PE NORMAL - Vitals Vital signs reviewed: Yes - General General: Alert and oriented X 3, No acute distress, Well developed/nourished - HEENT HEENT: Atraumatic, PERRL, EOMI, Moist mucous membranes, Pharynx benign - Neck Neck: No bony TTP - Derm Derm: Normal color, Warm and dry - Neuro Neuro: Alert and oriented X 3, concert manager 2-12 intact, No motor deficit, No sensory deficit, Normal speech, Other (Normal cerebellar testing, gait, and strength) Eye Opening: Spontaneous Motor: Obeys Commands Verbal: Oriented GCS Score: 15 Results - Vitals Vitals: Vital Signs - 24 hr 12/06/23 12/06/23 21:47 21:57 Temperature 36.7 C Heart Rate 99 88 Respiratory 18 Rate Blood Pressure 132/74 H O2 Saturation 99 Oxygen O2 Source Room air PD Medical Decision Making - ED course ED course: 23yF p/w mild post concussive symptoms after minor head injury yesterday. symptomatic care discussed. concussion return precautions given. Departure - Departure Disposition: 01 Home, Self Care Clinical Impression: Headache, Head injury, Nausea Condition: Stable Instructions: ED Head Injury Closed Comments: You were seen in the emergency department for medical evaluation after hitting your head yesterday. You do not appear to have any injury or visible neurologic issue on exam. You may have a mild concussion and will benefit from rest. Please follow-up with your primary care provider and return to the emergency department if you have any new or worsening symptoms or other concerns. Forms: PCP List, Activity restrictions
[2023-12-06 23:09] VITALS: BP 128/72; O2SAT 98
== END 2023-12-06 23:06 | disposition home or self-care (01) ==
LOC: ED 21:32
DX: S00.93XA Contusion of unspecified part of head, initial encounter (principal); S09.90XA Unspecified injury of head, initial encounter; W22.09XA Striking against other stationary object, initial encounter; Y92.810 Car as the place of occurrence of the external cause; F17.200 Nicotine dependence, unspecified, uncomplicated
CPT/HCPCS: 99282; 99283